=== PATIENT | female | born 1985 | race Caucasian/White ===

== ENCOUNTER → 2025-04-16 | Outpatient (CLI) | payer MEDICAID, SELFPAY ==
--- NOTE | 2025-04-16 11:35 | RAD_ITS ---
PROCEDURE: HIP, UNI W/ PELVIS 2-3 VIEWS 04/16/2025 REASON FOR EXAM: RIGHT HIP PAIN TECHNIQUE: AP pelvis and two views right hip, 3 total images COMPARISON: None available FINDINGS: Bilateral symmetric appearing SI joints and pubic symphysis appear within limits. Mild leftward curvature of the visualized lumbar spine. The hip joint spaces appear within limits. No fracture or dislocation. RAD/HIP, UNI W/ Pelvis 2-3 Views IMPRESSION: Study appears within limits as above. Reading Location: [id number]
== END | disposition home or self-care (01) ==
LOC: RAD 11:30
PROVIDERS: PCP Family Medicine; Referring Provider Anesthesiology Pain Medicine; Visit Provider Anesthesiology Pain Medicine
DX: M25.551 Pain in right hip (principal)
CPT/HCPCS: 73502

== ENCOUNTER 2025-05-09 15:30 | Outpatient (RCR) | payer MEDICAID, SELFPAY ==
--- NOTE | 2025-01-22 11:42 | HP.PTEVAL ---
Patient's Visit Information Visit Information Visit Information: MOISES LARIOS is a 39 year old F referred to Physical Therapy by Dr. Tyron Childs MD with a diagnosis of LUMBAR RADICULOPATHY AND SCOLIOSIS. Date of Evaluation: 01/22/25 Physical Therapist: Mary Dueñas PT, Cert MDT Visit Plan Frequency: 2x /Week Duration: 5-8 Plan: AQUATIC THERAPY FOR PAIN RELIEF, POSTURE CORRECTION/STRENGTHENING, INSTRUCTION IN APPROPRIATE BODY MECHANICS AND ACTIVITY MODIFICATIONS. DLS STARTING WITH A NEUTRAL SPINE PROGRESSING ROM TOLERATED. NORBERTO LE ROM, STRETCHING AND STRENGTHENING. HEP INSTRUCTION. 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 Present symptoms: RIGHT LOW BACK PAIN, R HIP PAIN. R THIGH PAIN. RIGHT THIGH TINGLING. R LE WEAKNESS. Present since: CHRONIC BUT INCREASED ABOUT 6 -12 MONTHS AGO Pain Scale: WORST 7/10, LEAST 3/10 Currently: 4/10 Is it getting better, worse or staying the same: STAYING THE SAME Commenced as a result of: SCOLIOSIS WITH NO APPARENT REASON FOR INCREASE 6-12 MONTHS AGO. USE TO BE ABLE TO GET TEMPORARY RELIEF. USE TO LIVING WITH 1-2/10 CONSTANT ACHE IN LOW BACK > 1 YEAR AGO FOR MOST OF ADULT LIFE AND NOT NEEDING TO TAKE PAIN MEDICATION FOR THAT (ADVIL, TYLONOL) Symptoms at onset: R LOW BACK PAIN Worse: WORK, BENDING, PROLONGED STANDING, LIFTING Better: MASSAGE, ALEVE, TYLONOL, MUSCLE RELAXER, HEATING PAD, HOT BATH, HOT SHOWER, ICE, BIOFREEZE Disturbed sleep: OCCASIONALLY Previous history/Previous treatment: H/O BACK PAIN. A FEW YEARS AGO IN 2019 SIGNIFICANT PAIN BETWEEN SHOULDER BLADES TREATED WITH PHYSICAL THERAPY AND TENS UNIT, PAIN MEDS AND RESOLVED. DX'D AT AGE 6 WITH SCOLIOSIS AND FITTED WITH NIGHT BRACE. AGE 10 HAD CORSET BRACE FOR DAYTIME FOR 1-2 YEARS. AGE 13 TO 14 HAD ANOTHER NIGHT BRACE FOR CORRECTION. PT FROM AGE 6 TO 14 FOR SCOLIOSIS. UTILIZED WATER BED, HOT TUB, WATER THERAPY, AND SPECIAL CHAIR FOR SCHOOL GROWING UP. IN A LOT OF PAIN CHILD AND USED W/C NEEDED. NO CHIROPRACTIC. Treatment this episode: CONSULT WITH DR. CHILDS. PT RECOMMENDED. MRI ORDERERD. PAIN MGMT CONSULTED TOO AND PATIENT AWAITING CALL. Coughing/sneezing/straining: NEGATIVE FOR INCREASED PAIN Gait: NORMAL. OCCASIONALLY STUMBLES TO THE R IF CARRYING SOMETHING HEAVY. Bowel or Bladder Dysfunction: NO Accidents: NO Unexplained weight loss: NO Imaging: YES - SEE [facility] EMR. MILD SCOLIOSIS. PMH/Recent major surgery: UNREMARKABLE Objective Objective: Sitting/Standing Posture: SLOUCHED IN SITTING. STANDING: R ILIAC CREST SLIGHTLY HIGHER. R SHLD LEVEL LOWER THAN L. NO RELEVANT LATERAL SHIFT. Active Correction of posture: ABLE TO PARTIALLY CORRECT. DOES NOT MAINTAIN. Other Observations: INDEP GAIT AND TRANSFERS. Sensory deficit: NORBERTO LE LIGHT TOUCH SENSATION GROSSLY INTACT AND SYMMETRICAL ROM deficit: MILD NORBERTO HS, HIP ER AND CALF TIGHTNESS Motor deficit: NORBERTO LE STRENGTH GROSSLY 5/5 EXCEPT HIPS: R 4-/5, L 4/5. Reflexes: 2+ NORBERTO LE'S. Dural Signs: POSITIVE L LE. Lumbar mvmt loss: flex - NIL ext - MOD R SG - NIL - INCREASES R LBP - NW L SG - MIN Core strength: FAIR- Balance/Special Test Scores Oswestry Low Back Score: 14 Goals Goal 1:: DECREASE C/O BACK AND LE SX'S BY AT LEAT 50% TO EASE ADL AND WORK FUNCTION Goal Time Frame: 4-6 Weeks Goal 2:: PATIENT WILL BE ABLE TO COMMUNICATE PROPER ACTIVITY MODIFICATIONS TO INDEP'LY MANAGE BACK PAIN AND MINIMIZE FURTHER INJURY. Goal Time Frame: 2-4 Weeks Goal 3:: PATIENT WILL DEMONSTRATE PROPER POSTURE CONTROL IN SITTING AND STANDING TO MINIMIZE BACK PAIN. Goal Time Frame: 2-4 Weeks Goal 4:: PATIENT WILL DEMONSTRATE KNOWLEDGE OF PROPER BODY MECHANICS FOR ADL'S TO DECREASE STRESS ON THE BACK AND MINIMIZE RISK OF FURTHER INJURY AND PAIN. Goal Time Frame: 4-6 Weeks Goal 5:: PATIENT WILL BE INDEP WITH APPROPRIATE STRENGTHENING EX'S ON LAND AND/OR IN THE WATER TO ASSIST WITH STABILIZATION AND MOVEMENT OF THE SPINE. Goal Time Frame: 6-8 Weeks Goal 6:: PATIENT WILL BE INDEP WITH APPROPRIATE STRETCHING EX'S ON LAND AND/OR IN THE WATER TO DECREASE STRESS ON THE SPINE. Goal Time Frame: 6-8 Weeks Rehabilitation Potential Physical Therapy Diagnosis: CORE AND LE STIFFNESS AND WEAKNESS RLE > L. Rehabilitation Potential: Good Anticipated Interventions Patient/Client Instruction: Educate patient on: Condition, Plan of Care and Risk Factors For the Purpose of:: To improve self management Therapeutic Exercise to Include: Strength training, Body mechanics, Postural training, Flexibilty training, Neuromotor development and Dynamic Lumbar Stabilization For the Purpose of:: To decrease pain, To increase ROM, To improve muscle performance and motor function, To increase tolerance to activity/condition/position, To improve ability of physical actions for home/community/work/leisure, To decrease soft tissue restriction, To increase flexibility/ROM and To improve self management Text: Thank you for the opportunity to evaluate your patient. For Medicare and Medicare HMO plans, please review the plan of care and approve it. It will need to be FAXED BACK to us at [phone] for Medicare purposes. For Medicare only, by signing this I certify the plan of care. Please let me know if there are questions or concerns regarding this plan of care. Physician Signature: Date:
--- NOTE | 2025-04-16 09:01 | HP.PTREVAL_ITS ---
Re-Evaluation Intro: Dr. Tyron Emanuel MD, It has been my pleasure to treat MOISES LARIOS over the last 7 visits for LUMBAR RADICULOPATHY AND SCOLIOSIS. Please see the progress note below for an update on the physical therapy plan of care! Subjective Subjective: PATIENT REPORTS SHE WAS DEFINATELY GETTING TEMPORARY PAIN RELIEF DURING AND AFTER AQUATIC THERAPY. MISSED SEVERAL FRANCISCA'TS DUE TO ILLNESS WITH HER CHILDREN THEN WAITING FOR MRI TO GET SCHEDULED BUT IT WAS DENIED. SHE REPORTS THE INJECTION SHE RECEIVED FROM DR. MINER 02/07/25 HELPED HER BACK PAIN FOR ABOUT 3 WKS BUT NOT HER HIP PAIN. OVER-ALL SHE REPORTS HER SX'S ARE ABOUT THE SAME OR WORSE NOW COMPARED TO WHEN SHE STARTED PT. C/O R SI JT AREA AND R HIP PAIN TODAY. PATIENT DENIES PAIN OTHERWISE. NO NUMBNESS OR TINGLING RIGHT NOW. PATIENT REPORTS SHE IS STILL HAVING R LEG WEAKNESS. Objective Objective/Function: PATIENT WAS SEEN TODAY FOR RE-ASSESSMENT AFTER INTERRUPTION IN POC. PATIENT IS A GOOD CANDIDATE TO RESUME AQUATIC THERAPY. UPON EXAM TODAY: Sitting/Standing Posture: SLOUCHED IN SITTING. STANDING: R ILIAC CREST SLIGHTLY HIGHER. R SHLD LEVEL LOWER THAN L. NO RELEVANT LATERAL SHIFT. Active Correction of posture: ABLE TO PARTIALLY CORRECT. DOES NOT MAINTAIN. Other Observations: INDEP GAIT AND TRANSFERS. Sensory deficit: NORBERTO LE LIGHT TOUCH SENSATION GROSSLY INTACT AND SYMMETRICAL ROM deficit: MILD NORBERTO HS, HIP ER AND CALF TIGHTNESS Motor deficit: NORBERTO LE STRENGTH GROSSLY 5/5 EXCEPT HIPS: R 4-/5, L 4/5. Reflexes: 2+ NORBERTO LE'S. Dural Signs: POSITIVE B LE. Lumbar mvmt loss: flex - NIL ext - MOD R SG - NIL - INCREASES R LBP - NW L SG - MIN - INCREASES R LBP - NW Core strength: FAIR- OTHER: PATIENT IS ABLE TO HEEL WALK AND TOE WALK WITHOUT UE ASSIST. Plan Plan Plan: RESUME AQUATIC THERAPY 2X'S A WK X 4 WKS: AQUATIC THERAPY FOR PAIN RELIEF, POSTURE CORRECTION/STRENGTHENING, INSTRUCTION IN APPROPRIATE BODY MECHANICS AND ACTIVITY MODIFICATIONS. DLS STARTING WITH A NEUTRAL SPINE PROGRESSING ROM TOLERATED. NORBERTO LE ROM, STRETCHING AND STRENGTHENING. HEP INSTRUCTION. Balance/Gait/Functional tests Balance/Special Test Scores Oswestry Low Back Score: 15 Goals Goals Goal 1:: DECREASE C/O BACK AND LE SX'S BY AT LEAT 50% TO EASE ADL AND WORK FUNCTION Goal Time Frame: 4-6 Weeks Goal 2:: PATIENT WILL BE ABLE TO COMMUNICATE PROPER ACTIVITY MODIFICATIONS TO INDEP'LY MANAGE BACK PAIN AND MINIMIZE FURTHER INJURY. Goal Time Frame: 2-4 Weeks Goal 3:: PATIENT WILL DEMONSTRATE PROPER POSTURE CONTROL IN SITTING AND STANDING TO MINIMIZE BACK PAIN. Goal Time Frame: 2-4 Weeks Goal 4:: PATIENT WILL DEMONSTRATE KNOWLEDGE OF PROPER BODY MECHANICS FOR ADL'S TO DECREASE STRESS ON THE BACK AND MINIMIZE RISK OF FURTHER INJURY AND PAIN. Goal Time Frame: 4-6 Weeks Goal 5:: PATIENT WILL BE INDEP WITH APPROPRIATE STRENGTHENING EX'S ON LAND AND/OR IN THE WATER TO ASSIST WITH STABILIZATION AND MOVEMENT OF THE SPINE. Goal Time Frame: 6-8 Weeks Goal 6:: PATIENT WILL BE INDEP WITH APPROPRIATE STRETCHING EX'S ON LAND AND/OR IN THE WATER TO DECREASE STRESS ON THE SPINE. Goal Time Frame: 6-8 Weeks Anticipated Interventions Anticipated Interventions Patient/Client Instruction: Educate patient on: Condition, Plan of Care and Ris k Factors For the Purpose of:: To improve self management Therapeutic Exercise to Include: Strength training, Body mechanics, Postural training, Flexibilty training, Neuromotor development and Dynamic Lumbar Stabilization For the Purpose of:: To decrease pain, To increase ROM, To improve muscle performance and motor function, To increase tolerance to activity/condition/position, To improve ability of physical actions for home/community/work/leisure, To decrease soft tissue restriction, To increase flexibility/ROM and To improve self management Re-Evaluation Ending Re-evaluation ending: Please do not hesitate to contact me at [phone] by phone or Fax: if you have questions or concerns regarding this new plan of care! Sincerely, Mary Dueñas, PT, Cert MDT
--- NOTE | 2025-05-09 16:29 | HP.PTDCSUM ---
Discharge Summary D/C summary: It has been my pleasure to treat MOISES LARIOS referred by Dr. Tyron Childs MD, with the diagnosis of LUMBAR RADICULOPATHY AND SCOLIOSIS for a total of 13 visit(s). Discharge Date: 05/09/25 Please see the following information for a summary of their discharge status. Subjective Subjective: PATIENT REPORTS SHE IS A LOT BETTER. SHE RELATES HER IMPROVEMENT TO A COMBINATION OF THE WATER EX'S, HOME EX'S AND THE RECENT R HIP JOINT INJECTION 04/24/25. PATIENT REPORTS SHE SAW HER X-RAY REPORT AND IT LOOKS NORMAL. PATIENT PLANS TO FOLLOW UP WITH DR. CHILDS AT THIS POINT AND WANTS TO HOLD FURTHER PT. SHE PLANS TO CONTINUE HER HOME AND WATER EX'S ON HER OWN. Pain SI Joint: Pain Intensity (Out of 10): 2 R HIP: Pain Intensity (Out of 10): 0 Overall Improvement % Improvement: 75 Objective Objective/Function: PATIENT WAS SEEN TODAY FOR RE-ASSESSMENT OF PROGRESS TOWARD THE SET PT GOALS AND THE NEED FOR FURTHER PHYSICAL THERAPY VS READINESS FOR DISCHARGE. THIS PATIENT HAS BEEN PROGRESSING WITH EX AND ALL OTHER PT GOALS HAVE BEEN MET. SHE HAS BEEN DOING MUCH BETTER SINCE HER HIP INJECTION AND WOULD LIKE TO STOP PT AND FOLLOW UP WITH [facility] AT THIS TIME. UPON EXAM TODAY: Motor deficit: NORBERTO LE STRENGTH GROSSLY 5/5 Dural Signs: NEGATIVE NORBERTO LE'S TODAY. Lumbar mvmt loss: flex - NIL ext - MOD R SG - NIL L SG - MIN Core strength: FAIR- OTHER: PATIENT IS ABLE TO HEEL WALK AND TOE WALK WITHOUT UE ASSIST. Goals Goal 1:: DECREASE C/O BACK AND LE SX'S BY AT LEAT 50% TO EASE ADL AND WORK FUNCTION Goal Progress: Goal Met Goal 2:: PATIENT WILL BE ABLE TO COMMUNICATE PROPER ACTIVITY MODIFICATIONS TO INDEP'LY MANAGE BACK PAIN AND MINIMIZE FURTHER INJURY. Goal Progress: Goal Met Goal 3:: PATIENT WILL DEMONSTRATE PROPER POSTURE CONTROL IN SITTING AND STANDING TO MINIMIZE BACK PAIN. Goal Progress: Goal Met Goal 4:: PATIENT WILL DEMONSTRATE KNOWLEDGE OF PROPER BODY MECHANICS FOR ADL'S TO DECREASE STRESS ON THE BACK AND MINIMIZE RISK OF FURTHER INJURY AND PAIN. Goal Progress: Goal Met Goal 5:: PATIENT WILL BE INDEP WITH APPROPRIATE STRENGTHENING EX'S ON LAND AND/OR IN THE WATER TO ASSIST WITH STABILIZATION AND MOVEMENT OF THE SPINE. Goal Progress: Progressing Goal 6:: PATIENT WILL BE INDEP WITH APPROPRIATE STRETCHING EX'S ON LAND AND/OR IN THE WATER TO DECREASE STRESS ON THE SPINE. Goal Progress: Progressing Plan Plan: D/C AT PATIENTS REQUEST. D/C Information d/c sentence: If there are questions or concerns regarding this patient's physical therapy, please feel free to call me at [phone]. Thank you for the referral of this patient. Sincerely, Mary Dueñas, PT, Cert MDT Balance/Gait/Functional tests Balance/Special Test Scores Oswestry Low Back Score: 9 Improvement % Improvement: 75
== END 2025-05-09 19:00 | disposition home or self-care (01) ==
LOC: PT 15:30
PROVIDERS: Referring Provider Orthopaedic Surgery Orthopaedic Surgery of the Spine; Visit Provider Orthopaedic Surgery Orthopaedic Surgery of the Spine
DX: M54.16 Radiculopathy, lumbar region (principal); M41.9 Scoliosis, unspecified
CPT/HCPCS: 97113; 97162; 97530